=== PATIENT | female | born 1940 | race African-American/Black ===

== ENCOUNTER 2016-08-02 01:38 | Inpatient (IN) | payer OTHER ==
--- NOTE | 2016-07-31 16:10 | History & Physical Pre-Op ---
General Information and HPI History of Present Illness: PATIENT: BERTA FOSTER PRESENT AGE: 76 PATIENT ACCOUNT NO: [id number] DATE OF : 42 ADMIT/SERVICE DATE: 01/25/16 ATTENDING PHYSICIAN: ANALIA BARRERA MD PATIENT CARE UNIT CONFIDENTIAL COPY General Information and HPI MD Statement: I have seen and personally examined BERTA FOSTER and documented this H&P. The patient is a 76 year old F who presented with a patient stated chief complaint of neck pain radiating to bilateral trapezius muscles with ROM, L>R. Source of Information: patient, family, old records Exam Limitations: no limitations History of Present Illness: Berta is a 76-year-old female who is complaining of progressively worsening neck pain that radiates from her posterior cervical spine to bilateral trapezius muscles, left side greater than right with range of motion. She denies any headaches, dizziness, radiating arm pain, numbness/tingling, or weakness in her upper extremities. She does rate her pain as a 3/10 in intensity at nighttime with difficulty sleeping due to the pain. She is status post revision anterior cervical decompression and fusion at C5-6 with instrumentation in January,. She did have complete resolution of her symptoms following that surgery, but over time, she has had progressively worsening neck pain which has been attributed to painful hardware and possible pseudoarthrosis. Her x-rays show good incorporation of bone from her surgery with intact hardware fixation. Her pain is predominantly elicited with lateral bending and forward flexion, consistent with impingement of the level above on her plate. Due to the fact that Berta has had progressively worsening symptoms and has failed to respond to conservative measures, she wants nothing more to do with nonsurgical treatment and has been consented for a revision anterior cervical decompression fusion with removal of hardware at C5-6 with possible revision fusion with iliac crest bone grafting and instrumentation on 08/02/2016. Allergies/Medications Allergies: Coded Allergies: Penicillins (Severe, SHORTNESS OF BREATH, DYSPNEA 10/20/15) acetaminophen (From PERCOCET) (vomiting 01/24/16) codeine (vomiting 01/24/16) oxycodone (From PERCOCET) (vomiting 01/24/16) aspirin (Mild, GI DISTRESS 10/04/15) Home Med list Acetaminophen (Tylenol) 325 MG TABLET 650 MG PO Q4P PRN TEMP > 101.5 Albuterol Sulfate (Ventolin Hfa) 18 GM HFA.AER.AD 2 PUF INH PRN RESPIRATORY ( Reported) Bisacodyl (Bisac-Evac) 10 MG SUPP.RECT 10 MG MI DAILY NEEDED PRN CONSTIPATION Calcium Carbonate 260 MG TABLET 650 MG PO BID OSTEOPOROSIS Calcium Carbonate/Vitamin D3 (Calcium 500 + D Tablet) (Unknown Strength) TABLET (Unknown Dose) PO DAILY SUPPLEMENT (Reported) Cholecalciferol (Vitamin D3) (Vitamin D3) 400 UNIT TABLET 1 TAB PO DAILY SUPPLEMENT (Reported) Docusate Sodium 100 MG CAPSULE 100 MG PO BID PRN CONSTIPATION Hydrocodone/Acetaminophen (Hydrocodon-Acetamin 7.5-325/15) 15 ML SOLUTION 15 ML PO Q6P PRN PAIN SCALE 1 TO 5 [IMOVANE] 11.25 MG PO QPM SLEEP Latanoprost (Xalatan) 2.5 ML DROPS 1 GTT OPH QPM GLAUCOMA - BOTH EYES ( Reported) Levothyroxine Sodium 75 MCG TABLET 1 TAB PO EOD THYROID (Reported) Levothyroxine Sodium 100 MCG TABLET 1 TAB PO EOD THYROID (Reported) Lubiprostone (Amitiza) 24 MCG CAPSULE 1 CAP PO BID CONSTIPATION (Reported) Magnesium Hydroxide (Milk Of Magnesia) 400 MG/5 ML ORAL.SUSP 30 ML PO Q8P PRN CONSTIPATION [MODIURETIC] 1 TAB PO DAILY BP (Reported) Multivitamin (Multi-Day Vitamins) 1 EACH TABLET 1 TAB PO DAILY SUPPLEMENT ( Reported) Quetiapine Fumarate (Seroquel) 25 MG TABLET 1 TAB PO QPM PRN SLEEP (Reported) Tobramycin (Tobrex) 5 ML DROPS 1 GTT OPH QHS GLAUCOMA - BOTH EYES (Reported) Compliance With Home Meds: POOR Past History Medical History Blood Transfusion Hx: No Neurological: dementia EENT: glaucoma Cardiovascular: hypertension Respiratory: asthma Gastrointestinal: constipation, peptic ulcer disease Hepatic: NONE Renal: NONE Musculoskeletal: chronic back pain, osteoarthritis Psychiatric: insomnia Endocrine: diabetes, hypothyroidism Blood Disorders: NONE Cancer(s): NONE SHEEP RANCHER/Reproductive: HEAVY PERIODS/HYSTERECTOM History of MRSA: No History of VRE: No History of CDIFF: No Isolation History: Standard Influenza Vaccine: 01/11/15 Surgical History Pertinent Surgical History: cholecystectomy, hysterectomy, EAR SURGERY s/p ACDF C5-6 09/2015 s/p PCDF C5-6 October,, s/p ACDF C5-6 10/04/15, s/p PCDF C5-6 , s/p Revision ACDF C5-6 01/25/16 Past Family/Social History Family History Relations & Conditions if any Family history was reviewed; no changes noted. Psychosocial History Where Do You Live? Home Who Do You Live With? self Services at Home None Primary Language: Vietnamese Smoking Status: Current Everyday Smoker (1-3/day) ETOH Use: denies use Other Social History: with 1 daughter Functional Ability ADLs Independent: dressing, eating, toileting, bathing. Ambulation: independent IADLs Independent: shopping, housework, finances, food prep, telephone, transportation , medication admin. Employment History Employment: Employed Review of Systems Review of Systems: Remarkable for the above complaints. Review of Systems Post Menopausal: Yes Medication List Current Psychiatric Med(s): Modiuretic one tablet daily Tylenol 325 mg 1 tab by mouth every 4-6 hours when necessary for pain Tobrex 5 mL drops 1 drop to both eyes daily at bedtime Multivitamin daily Tramadol 50 mg 1 tab by mouth every 6 hours when necessary for pain Calcium 500 mg 1 tab by mouth twice a day Vitamin D thousand international units daily Ventolin 18g HFA aerosolized inhaler 2 puffs every 4 hours when necessary for shortness of breath Exam & Diagnostic Data Physical Exam: height: 4 feet 10 inches Weight: 128 pounds Assessment/Plan Assessment/Plan: Assessment: -1.Painful hardware with impingement of the instrumentation, status post anterior cervical decompression and fusion at C5-6 2. Diabetes mellitus 3. Hypertension 4. Hypothyroidism 5. Peptic ulcer disease 6. Osteoarthritis Plan: Berta is here status post revision anterior cervical decompression and fusion at C5-6 with painful hardware and impingement of the instrumentation at the adjacent level above. Because of her progressively worsening symptoms and failure to respond to conservative measures, Berta has been scheduled for a revision anterior cervical decompression fusion, removal of hardware at C5-6 with possible revision fusion with instrumentation and/or iliac crest bone grafting on 08/02/16. We discussed the procedure in full detail. We also discussed the pre-and postoperative course, follow-up care and instructions, and anticipated recovery. We also discussed the risks of surgery not to exclude , paralysis, infection, bleeding, continued pain, failure of the surgery, need for future surgery, DVT, vascular injury, CSF leak, hoarseness, and dysphagia, and given these risks, she still wishes to proceed. She is scheduled to follow-up with her primary care physician, Dr. Peraza, on 07/23/2016 for preoperative clearance. She does well with tramadol for postoperative pain control and does get mild nausea with morphine. Any changes in this patient's plan is based on her outpatient clinical presentation. As Ranked By This Provider Problem List: 1. Hypertension 2. Diabetes 3. Constipation 4. Hypothyroid Attending MD Review Statement Attending Statement Attending MD Statement: examined this patient, discuss w/resident/PA/FAMILY SERVICE WORKER, agreed w/resident/PA/FAMILY SERVICE WORKER, discussed with family, reviewed images DICTATED BY: CHERYL GOOD PA-C DATE/TIME DICTATED:07/18/161355 TRACK VEHICLE REPAIRER:VENU DATE/TIME TRANSCRIBED:07/18/161355 REPORT NUMBER:[id number] CONFIDENTIAL, DO NOT COPY WITHOUT APPROPRIATE AUTHORIZATION. Allergies/Medications Allergies: Coded Allergies: Penicillins (Severe, SHORTNESS OF BREATH, DYSPNEA 10/20/15) acetaminophen (From PERCOCET) (vomiting 01/24/16) codeine (vomiting 01/24/16) oxycodone (From PERCOCET) (vomiting 01/24/16) aspirin (Mild, GI DISTRESS 10/04/15) Home Med list Acetaminophen (Tylenol) 325 MG TABLET 650 MG PO Q4P PRN TEMP > 101.5 Calcium Carbonate/Vitamin D3 (Calcium 500 + D Tablet) (Unknown Strength) TABLET (Unknown Dose) PO DAILY SUPPLEMENT (Reported) Cholecalciferol (Vitamin D3) (Vitamin D3) 400 UNIT TABLET 1 TAB PO DAILY SUPPLEMENT (Reported) Latanoprost (Xalatan) 2.5 ML DROPS 1 GTT OPH QPM GLAUCOMA - BOTH EYES ( Reported) [MODIURETIC] 1 TAB PO DAILY BP (Reported) Multivitamin (Multi-Day Vitamins) 1 EACH TABLET 1 TAB PO DAILY SUPPLEMENT ( Reported) Pregabalin (Lyrica) 25 MG CAPSULE 1 CAP PO QPM PAIN (Reported) Tobramycin (Tobrex) 5 ML DROPS 1 GTT OPH QHS GLAUCOMA - BOTH EYES (Reported) Past History Medical History Neurological: dementia EENT: glaucoma Cardiovascular: hypertension Respiratory: asthma Gastrointestinal: constipation, peptic ulcer disease Hepatic: NONE Renal: NONE Musculoskeletal: chronic back pain, osteoarthritis Psychiatric: insomnia Endocrine: diabetes, hypothyroidism Blood Disorders: NONE Cancer(s): NONE SHEEP RANCHER/Reproductive: HEAVY PERIODS/HYSTERECTOM History of MRSA: No History of VRE: No History of CDIFF: No Influenza Vaccine: 01/11/15 Surgical History Pertinent Surgical History: cholecystectomy, hysterectomy, EAR SURGERY s/p ACDF C5-6 09/2015 s/p PCDF C5-6 October, s/p ACDF C5-6 10/04/15 s/p PCDF C5-6 10/27/15 s/p Revision ACDF C5-6 01/25/16 Past Family/Social History Psychosocial History Who Do You Live With? self Services at Home None Primary Language: Vietnamese Functional Ability ADLs Independent: dressing, eating, toileting, bathing. Ambulation: independent IADLs Independent: shopping, housework, finances, food prep, telephone, transportation , medication admin. Exam & Diagnostic Data Physical Exam General Appearance Alert, Oriented X3, Cooperative, No Acute Distress Skin No Rashes, No Breakdown, No Significant Lesion HEENT Atraumatic, PERRLA, EOMI, Mucous Membr. moist/pink Neck Supple, No JVD, No thryomegaly, +2 Carotid Pulse wo Bruit Lymphatic Cervical nl Cardiovascular Regular Rate, Normal S1, Normal S2, No Murmurs Lungs Clear to Auscultation Abdomen Normal Bowel Sounds, Soft, No Tenderness, No Masses Neurological Normal Gait, Normal Speech, Strength at 5/5 X4 Ext, Normal Tone, Sensation Intact, Reflexes 2+ Extremities No Clubbing, No Cyanosis, No Edema, Normal Pulses Vascular Normal Pulses Assessment/Plan As Ranked By This Provider Problem List: 1. Hypertension 2. Diabetes 3. Constipation 4. Hypothyroid Attending MD Review Statement Attending Statement Attending MD Statement: examined this patient, discuss w/resident/PA/FAMILY SERVICE WORKER, agreed w/resident/PA/FAMILY SERVICE WORKER, discussed with family, reviewed images
[~2016-08-02] VITALS: Ht 144.8 cm; Wt 56.7 kg
[~2016-08-02 01:38] MED LIST: AMILORIDE HCL-1 EACH PO; AMITIZA24 MC1 PO; BISAC-EVAC10 M1 PR; CALCIUM 500 +1 EAC5 PO; CALCIUM CARBON260 M1 PO; CELEBREX200 M1 PO; DOCUSATE SODIU100 M3 PO; HYDROCODON-ACET15 ML PO; JANUVIA100 M1 PO; LEVOTHYROXINE100 MC1 PO; LEVOTHYROXINE75 MCG PO; LYRICA100 M1 PO; LYRICA25 M1 PO; MILK OF MA400 MG/52 PO; MULTI-DAY VITA1 EACH PO; ONE DAILY MULT1 EAC2 PO; OS-CAL 500+D31 EACH PO; PERCOCET 5-3251 EACH PO; SEROQUEL25 M1 PO; TOBREX5 ML OPH; TYLENOL325 M1 PO; ULTRAM50 M1 PO; VENTOLIN HFA18 GM INH; VICODIN 5-3001 EACH PO; VITAMIN D3400 UNI1 PO; XALATAN2.5 ML OPH; [UNRECOGNIZED DRUG - OTHER] PO; [UNRECOGNIZED DRUG - OTHER] PO
--- NOTE | 2016-08-03 08:45 | Operative Report ---
Operative/Inv Procedure Report Surgery Date: 08/03/16 Name of Procedure: Inspection of fusion cervical spine removal of hardware C-spine anterior. Takedown of nonunion pseudoarthrosis. Anterior fusion. Use of fluoroscopy 1 disc level. Pre-Operative Diagnosis: Pseudoarthrosis instrumented level cervical spine Post-Operative Diagnosis: Same Estimated Blood Loss: scant Surgeon/Pediatric Critical Care Nurse: HOLLY MONTGOMERY,ANALIA SPICER Anesthesia: general endotracheal tube Operative/Procedure Note Note: After adequate general anesthesia was achieved the patient was sterilely prepped and draped on the right side of the neck. The previous incision was entered sharply a blunt dissection was carried medial to the neurovascular bundle lateral to the visceral structures. The hardware was easily identified the screws of the plate superiorly were both loose consistent with pseudoarthrosis. The plate was removed inspection of the fusion mass showed motion at the at the cage bone interface. The cage was not loose inferiorly. An anterior fusion was performed with the high-speed bur generating bone graft which was packed in the loose crack above the cage. A decision was made not to use an anterior plate given the proximity of the superior level. The wound was irrigated a closure of the platysma was performed with absorbable suture after hemostasis was achieved. The skin was closed with nylon. After placement of sterile dressings the patient was transferred to the stretcher.
--- NOTE | 2016-08-03 09:53 | Patient Discharge Instructions ---
Acute Coronary Syndrome Inclusion Criteria At DC or during hospital stay patient has or had the following: ACS DIAGNOSIS No Discharge Core Measures Meds if any: Prescribed or Continued at Discharge Meds if any: NOT Prescribed or Continued at Discharge Congestive Heart Failure Inclusion Criteria At DC or during hospital stay patient has or had the following: CHF DIAGNOSIS No Discharge Core Measures Meds if any: Prescribed or Continued at Discharge Meds if any: NOT Prescribed or Continued at Discharge Cerebrovascular accident Inclusion Criteria At DC or during hospital stay patient has or had the following: CVA/TIA Diagnosis No Discharge Core Measures Meds if any: Prescribed or Continued at Discharge Meds if any: NOT Prescribed or Continued at Discharge Venous thromboembolism Inclusion Criteria VTE Diagnosis No VTE Type NONE VTE Confirmed by (Test) NONE Discharge Core Measures - Per Current guidelines, there needs to be overlap - treatment for the first 5 days of Warfarin therapy. - If discharged on Warfarin prior to 5 days of - overlap therapy, the patient will need to be - assessed for post discharge needs including - *Post discharge parental anticoagulation - *Warfarin and/or parental anticoagulation education - *Follow up date to check INR post discharge At least 5 days overlap therapy as Inpatient No Meds if any: Prescribed or Continued at Discharge Note: Overlap Therapy is Warfarin and Anticoagulant Meds if any: NOT Prescribed or Continued at Discharge
--- NOTE | 2016-08-03 10:46 | Cons- Medical ---
CAROLANN KAUR MD 08/03/16 1044: General Information and HPI Consulting Request Date of Consult: 08/03/16 Requested By: ANALIA BARRERA MD Reason for Consult: CO-MANAGEMENT- HTN, DM, HYPOTHYROIDISM Source of Information: patient, old records Exam Limitations: no limitations History of Present Illness: This is a 76-year-old lady with a history significant for hypertension, hypothyroidism, current everyday submits smoking, remote history of diabetes mellitus, that is postop day 0 after revision of pseudoarthrosis of the instrumented level of the cervical spine. A medicine consult was requested by the surgical team to comanage the patient's chronic medical problems namely COPD , hypertension, hypothyroidism, diabetes mellitus. I saw and evaluated the patient the PACU. She offers no complaints, remains hemodynamically stable. States that her surgery went well, her only request is that she is hungry at present. Allergies/Medications Allergies: Coded Allergies: Penicillins (Severe, SHORTNESS OF BREATH, DYSPNEA 10/20/15) acetaminophen (From PERCOCET) (vomiting 01/24/16) codeine (vomiting 01/24/16) oxycodone (From PERCOCET) (vomiting 01/24/16) aspirin (Mild, GI DISTRESS 10/04/15) Review of Systems Review of Systems Constitutional: Reports: see HPI. Past History Medical History EENT: glaucoma Cardiovascular: hypertension Respiratory: asthma Gastrointestinal: peptic ulcer disease Hepatic: NONE Renal: NONE Musculoskeletal: chronic back pain, osteoarthritis Endocrine: diabetes, hypothyroidism Blood Disorders: NONE Cancer(s): NONE Surgical History Surgical History: cholecystectomy, hysterectomy, EAR SURGERY s/p ACDF C5-6 2015 s/p PCDF C5-6 October, s/p ACDF C5-6 10/04/15 s/p PCDF C5-6 10/27/15 s/p Revision ACDF C5-6 01/25/16 Psychosocial History Who Do You Live With? self Services at Home: None Primary Language: [place] Smoking Status: Current Everyday Smoker (5-7 CIGARETTES) Functional Ability ADLs Independent: dressing, eating, toileting, bathing. Ambulation: independent IADLs Independent: shopping, housework, finances, food prep, telephone, transportation , medication admin. Exam & Diagnostic Data Last 24 Hrs of Vital Signs/I&O PER EMR Physical Exam General Appearance: well developed/nourished, no apparent distress, alert, awake , comfortable Head: atraumatic, normal appearance Eyes: Bilateral: normal appearance, PERRL, EOMI. Ears, Nose, Throat: normal pharynx, normal ENT inspection, hearing grossly normal, DRY STERILE DRESSING ON RIGHT NECK Respiratory: normal breath sounds, chest non-tender, no respiratory distress Cardiovascular: regular rate/rhythm Gastrointestinal: normal bowel sounds, soft, non-tender Back: normal inspection Extremities: normal inspection, normal capillary refill, normal range of motion Last 24 Hrs of Labs/Vishal: PER EMR Assessment/Plan Assessment/Plan ASSESSMENT- 1. 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 History of osteoarthritis 3. History of hypothyroidism 4. History of COPD 5. History of GERD 6. History of hypertension 7. Remote history of diabetes mellitus 8. Current everyday smoker, 5-7 cigarettes per day PLAN- 1. Surgical site management per surgery 2. D/C IVF after this bag 3. Accuchecks 4. START Low dose insulin (Aspart) sliding scale, DISCONTINUE Novolin R TIDAC/HS scale; patient states per her doctor she has a very low grade of Diabetes 5. Diabetic diet 6. Continue Synthroid 100 mcg 7. Continue Omeprazole 40 mg daily 8. Start Amlodipine 5 mg and Hydrochlorothiazide 50 mg daily 9. Continue Symbicort 160/4.5, 2 puff BID 10. Provide adequate analgesia 11. Bowel regiment 12. PT per surgery 13. TRC evaluation 14. 7 g daily nicotine patch Problem List: 1. Hypothyroid 2. Diabetes 3. Hypertension Consult Acknowledgment - Thank you for your consult request. DARREL MARRERO MD 08/03/16 1402: General Information and HPI Allergies/Medications Home Med List: Acetaminophen (Tylenol) 325 MG TABLET 650 MG PO Q4P PRN TEMP > 101.5 Calcium Carbonate/Vitamin D3 (Calcium 500 + D Tablet) (Unknown Strength) TABLET (Unknown Dose) PO DAILY SUPPLEMENT (Reported) Cholecalciferol (Vitamin D3) (Vitamin D3) 400 UNIT TABLET 1 TAB PO DAILY SUPPLEMENT (Reported) Hydromorphone HCl 2 MG TABLET 1 MG PO Q4 HRS NEEDED PRN PAIN SCALE 1-3 ( MILD) 1-2 TABS PO Q 4-6 HOURS PRN PAIN Latanoprost (Xalatan) 2.5 ML DROPS 1 GTT OPH QPM GLAUCOMA - BOTH EYES ( Reported) [MODIURETIC] 1 TAB PO DAILY BP (Reported) Multivitamin (Multi-Day Vitamins) 1 EACH TABLET 1 TAB PO DAILY SUPPLEMENT ( Reported) Pregabalin (Lyrica) 25 MG CAPSULE 1 CAP PO QPM PAIN (Reported) Tobramycin (Tobrex) 5 ML DROPS 1 GTT OPH QHS GLAUCOMA - BOTH EYES (Reported) Assessment/Plan Consult Acknowledgment - Thank you for your consult request. Attending MD Review Statement Attending Statement Attending MD Statement: examined this patient, discuss w/resident/PA/PLATE MILL HAND, agreed w/resident/PA/PLATE MILL HAND, reviewed EMR data (avail), discussed with nursing, reviewed images, amended to note Attending Assessment/Plan: Patient is a 76-year-old female with history of hypertension. Family also reports that she was previously on medications for diabetes control were no longer requires his medications. Admitted for elective cervical surgery due to degenerative joint disease that failed conservative management. She tolerated the procedure with no complications. Family reports that she is occasionally forgetful and a sitter was placed for her safety. She is currently alert and oriented the 3 and not in any acute distress. She is hemodynamically stable. She hasn't intact surgical dressing over the neck anteriorly. Lungs are clear bilaterally. Abdomen is soft and nontender. She has no peripheral edema. Recommendations: -Patient is on Moduretic 5/50 mg orally daily. She can be placed on amlodipine 5 mg and hydrochlorothiazide 50 mg daily. -Monitor blood glucose with low-dose coverage as needed. -Continue pain control and physical therapy as recommended by the surgical service.
[2016-08-03 11:56] VITALS: BP 128/72
[2016-08-03] MEDS ORDERED: HYDROMORPHONE HC2 M1 PO (13:28)
[2016-08-03 14:21] VITALS: BP 118/60
--- NOTE | 2016-08-03 15:33 | PN- Orthopedic ---
Subjective Subjective: S/P removal of hardware to c-spine due to pseudoarthrosis. Resting comfortably in recliner at bedside. No complaints of pain. Denies N/V, F/C, CP/SOB. Yet to ambulate. Has voided spontaneously. Objective Vital Signs and I&Os Vital Signs Date Time Temp Pulse Resp B/P Pulse O2 O2 Flow FiO2 Ox Delivery Rate 08/03 1421 98.3 64 18 118/60 100 Room Air 08/03 1200 96 Nasal 2.0L Cannula 08/03 1156 97.6 52 18 128/72 98 Nasal 2.0L Cannula Intake & Output 08/03 1600 08/03 0800 08/03 0000 08/02 1600 08/02 0800 08/02 0000 Intake Total 480 Output Total 250 Balance 230 Intake, Oral 480 Output, Urine 250 Patient 125 lb Weight Physical Exam: Gen: AAOx3 in NAD HEENT: dressing to right neck C/D/I. No soft tissue mass to suggest hematoma. Minimal tenderness to palpation. Cor: S1+S2+ Lungs: CTA mally Abd: soft, NT, ND, +BS x4 Ext: strength 5/5 throughout mally upper and lower extremities. Current Medications: Current Medications Sig/Melony Start time Last Medication Dose Route Stop Time Status Admin Acetaminophen 650 MG Q4P PRN 08/03 0945 AC PO Acetaminophen 1,000 MG .STK-MED ONE 08/03 722 DC IV 08/04 723 Albuterol Sulfate 2 PUF Q4P PRN 08/03 1000 AC INH Amlodipine Besylate 5 MG DAILY 08/04 1000 AC PO Bisacodyl 10 MG DAILY NEEDED PRN 08/03 0945 AC UT Budesonide/ 2 PUF BID 08/03 1000 AC 08/03 Formoterol Fumarate INH 1435 Calcium 600 MG BID 08/03 1000 AC 08/03 PO 1434 Cholecalciferol 1,000 IU DAILY 08/03 1000 AC 08/03 PO 1434 Clindamycin 600 MG IQ8 08/03 1600 AC Dextrose/Water 50 ML IV 08/04 0829 Clindamycin 600 MG ONCE 08/03 0000 NR Dextrose/Water 50 ML IV 08/03 2359 Dexamethasone 4 MG .STK-MED ONE 08/03 0722 DC IM 08/03 07 Docusate Sodium 100 MG BID 08/03 1000 AC 08/03 PO 1244 Fentanyl Citrate 250 MCG .STK-MED ONE 08/03 07 DC IM 08/03 07 Hydrochlorothiazide 50 MG DAILY 08/04 1000 AC PO Hydromorphone HCl 1 MG Q4 HRS NEEDED PRN 08/03 1000 AC PO Hydromorphone HCl 2 MG Q4P PRN 08/03 1000 AC 08/03 PO 1440 Hydromorphone HCl 2 MG .STK-MED ONE 08/03 07 DC IM 08/03 07 Insulin Aspart 0 TIDAC 08/03 1700 AC SC Insulin Human Regular 0 TIDAC/HS 08/03 1200 CAN SC Insulin Human Regular 0 TIDAC/HS 08/03 1200 DC 08/03 SC 1243 Ketorolac 30 MG .STK-MED ONE 08/03 721 DC Tromethamine IM 08/03 07 Lactated Ringer's 1,000 ML Q13H 08/03 1000 AC 08/03 IV 08/03 2259 1126 Latanoprost 1 GTT QPM 08/03 2200 AC OPH Levothyroxine Sodium 0.1 MG DAILY AC 08/04 0700 AC PO Lorazepam 0.5 MG Q4P PRN 08/03 1000 AC PO 08/10 0959 Magnesium Hydroxide 30 ML Q12P PRN 08/03 1000 AC PO Midazolam HCl 2 MG .STK-MED ONE 08/03 07 DC IM 08/03 0723 Morphine Sulfate 1 MG Q3P PRN 08/03 0945 AC IV Multivitamins 1 TAB DAILY 08/03 1000 AC 08/03 Therapeutic PO 1434 Omeprazole 40 MG DAILY AC 08/04 0700 AC PO Ondansetron HCl 4 MG Q6P PRN 08/03 0945 AC IV Pregabalin 25 MG QPM 08/03 2200 AC PO Remifentanil 5 MG .STK-MED ONE 08/03 07 DC IV 08/03 0724 Spironolactone 12.5 MG DAILY 08/03 1000 DC PO Tobramycin 1 GTT AT BEDTIME 08/03 2200 AC OPH Trimethobenzamide HCl 200 MG Q6P PRN 08/03 0945 AC IM Assessment/Plan Assessment/Plan A: s/p removal hardware c spine due to pseudoarthrosis; AVSS. Plan: Continue current care. Advance diet as tolerated. PO pain medication with IV for breakthrough if necessary. OOB and ambulate as tolerated. Likely d/c tomorrow. Core Measures/Miscellaneous Venous Thromboembolism VTE Risk Factors: Age > 40, Surgery VTE Contraindications: No Contraindications No Pharm VTE Prophylaxis D/T: Surgical Contraindication VTE Diagnosis: No VTE Type: NONE VTE Confirmed by (Test): NONE Beta Scooby Is Beta Scooby a Home Med? No Antibiotics Is Patient on Antibiotics? Yes If Yes: prophylaxis
[2016-08-03] MEDS ORDERED: VENTOLIN HFA18 GM INH (15:46)
[2016-08-03] MEDS ORDERED: SYMBICORT 16010.2 GM INH (15:47)
[2016-08-03] MEDS ORDERED: DOCUSATE SODIU100 M3 PO (15:48)
--- NOTE | 2016-08-03 15:50 | Surg Short-stay <48hrs Dis Sum ---
See Addendum Visit Information Visit Dates Admission Date: 08/03/16 Discharge Date: 08/04/16 Surgical Short Stay DC Summary Admission Diagnosis: Pseudoarthrosis instrumented level cervical spine Final Diagnosis: Pseudoarthrosis instrumented level cervical spine Procedure(s): REMOVAL HARDWARE CSPINE Summary/Significant Findings: Mrs. Prince is a 76 year old female with hypothyroidism and COPD who was found to have pseudoarthrosis of her cspine around her old hardware. She underwent removal of her hardware on 08/03/16 and did well intraoperatively. She was transferred to the surgical floor in stable condition. She tolerated a heart healthy diet and her IVF were stopped. Perioperative antibiotics were given. She was discharged on POD #1 with outpatient follow up with Dr. Rust. Condition at Discharge: stable Discharge Disposition: home or self care Discharge instructions provided to patient/family: Yes Post discharge follow-up plan: Dr. Rust
[2016-08-03 21:24] VITALS: BP 120/54
[2016-08-04 07:41] VITALS: BP 115/55
[2016-08-04 09:06] VITALS: BP 112/56
[2016-08-04] MEDS ORDERED: SYNTHROID100 MCG PO (12:24)
[2016-08-04] MEDS ORDERED: BISAC-EVAC10 M1 PR (12:24)
[2016-08-04] MEDS ORDERED: MILK OF MA400 MG/52 PO (12:24)
[2016-08-04] MEDS ORDERED: OMEPRAZOLE20 M2 PO (12:25)
--- NOTE | 2016-08-04 13:03 | PN- Orthopedic ---
Subjective Subjective: No acute overnight events reported. Pain well controlled. Tolearating oob. No c/o chest pain, shortness of breath and difficulty breathing. No nausea and vomitting. Objective Vital Signs and I&Os Vital Signs Date Time Temp Pulse Resp B/P Pulse O2 O2 Flow FiO2 Ox Delivery Rate 08/04 0906 62 112/56 08/04 0741 98.6 60 18 115/55 99 Room Air 08/03 2124 98.0 55 18 120/54 94 Room Air 08/03 1421 98.3 64 18 118/60 100 Room Air Intake & Output 08/04 1600 08/04 0800 08/04 0000 08/03 1600 08/03 0800 08/03 0000 Intake Total 720 Output Total 250 Balance 470 Intake, IV Intake, Oral 720 Output, Urine 250 Patient 125 lb Weight Physical Exam: General: Alert and oriented x3, no acute distress Cardiac: RRR, s1s2 Pulmonary: CTA bilaterally Abdomen: Non-tender, non-distended Extremities: Moves all extremities, distal sensation intact. Skin well perfused. Calves soft and non-tender Surgical site: Dressing dry and intact, voice strong, no swelling. Assessment/Plan Assessment/Plan This is a 76 year old female, POD 1, s/p removal of hardware cervical spine. -Plan for discharge today to home -Diet as tolerated -Continue current pain regimen -Discussed with Dr. Morrow Core Measures/Miscellaneous Venous Thromboembolism VTE Risk Factors: Age > 40, Surgery VTE Contraindications: No Contraindications No Pharm VTE Prophylaxis D/T: Surgical Contraindication VTE Diagnosis: No VTE Type: NONE VTE Confirmed by (Test): NONE Beta Scooby Is Beta Scooby a Home Med? No Antibiotics Is Patient on Antibiotics? Yes If Yes: prophylaxis
== END 2016-08-04 13:40 | DRG 473 ==
LOC: ENRESERVTM → ENRESERVDT → UNDOADMIN 01:38 → SDA 01:38 → ENPENDDIS 08-03 01:36 → SDA 08-03 01:36 → 2NB 08-03 11:16
PROVIDERS: ADMIT Orthopaedic Surgery Orthopaedic Surgery of the Spine
PROC: 0RP104Z Removal of Internal Fixation Device from Cervical Vertebral Joint, Open Approach (ICD-10-PCS; principal; 2016-08-03)
PROC: 0RG10Z0 (ICD-10-PCS; principal; 2016-08-03)
DX: M96.0 Pseudarthrosis after fusion or arthrodesis (principal); E11.9 Type 2 diabetes mellitus without complications; I10 Essential (primary) hypertension; Y83.4 Other reconstructive surgery as the cause of abnormal reaction of the patient, or of later complication, without mention of misadventure at the time of the procedure; Y92.009 Unspecified place in unspecified non-institutional (private) residence as the place of occurrence of the external cause; F17.210 Nicotine dependence, cigarettes, uncomplicated; E03.9 Hypothyroidism, unspecified; K30 Functional dyspepsia; M19.90 Unspecified osteoarthritis, unspecified site; H40.9 Unspecified glaucoma
CPT/HCPCS: 2NBP; 97110-GO; 97116-GO; 97161-GP; 97530-GO; C9399; J0131; J1100; J1885; J2405; J3250; J3490; J7120